=== PATIENT | male | born 1950 | race Caucasian/White ===

== ENCOUNTER → 2016-12-10 | Outpatient (CLI) | payer OTHER, BC ==
[2016-12-10 10:28] LABS: ASPARTATE AMINO TRANSFERASE 31 IU/L (21-57); BILIRUBIN,TOTAL 0.7 mg/dL (0.3-1.2); BLOOD UREA NITROGEN 23 mg/dL (7-22); CALCIUM 9.7 mg/dL (8.7-10.7); CHLORIDE 97 meq/L (98-112); CREATININE 1.1 mg/dL (0.70-1.50); EST GLOMERULAR FILTRATION > 60 (>60 ml/min/1.73m(2)); GLUCOSE 113 mg/dL (78-110); POTASSIUM 4.5 meq/L (3.8-5.2); SODIUM 139 meq/L (135-145); TOTAL PROTEIN 7.1 g/dL (6.1-8.0)
[2016-12-10 10:33] LABS: BASOPHILS % (AUTO) 1.1 % (0-1); EOSINOPHILS % (AUTO) 3.4 % (0-8); HEMATOCRIT 44.6 % (42.0-52.0); HEMOGLOBIN 14.6 g/dL (14.0-18.0); IMM GRAN % (AUTO) 0.1 % (0-5); IMM GRAN# (AUTO) 0.01 10*3/UL; LYMPHOCYTES # (AUTO) 1.05 10*3/uL; LYMPHOCYTES % (AUTO) 11.5 % (10-50); MEAN CORPUSCULAR HEMOGLOBIN 26.7 PG (27-31); MEAN CORPUSCULAR HGB CONC 32.7 g/dL (33-37); MEAN PLATELET VOLUME 10.8 FL (7.4-12.2); MONOCYTES # (AUTO) 0.88 10*3/UL (0.3-0.8); MONOCYTES % (AUTO) 9.6 % (5-15); NEUTROPHILS % (AUTO) 74.3 % (50-80); RDW COEFFICIENT OF VARIATION 16.9 % (11.5-14.5); RED BLOOD COUNT 5.47 10^6/uL (4.70-6.10); WHITE BLOOD COUNT 9.15 10^3/uL (4.8-10.8)
[2016-12-10 10:45] LABS: PLATELET MORPHOLOGY COMMENT NORMAL MORPHOLOGY (NORM)
[2016-12-10 10:50] LABS: HEMOGLOBIN A1C 5.76 % (4.2-6.0); MEAN BLOOD GLUCOSE (CALC) 105.808 mg/dL
[2016-12-10 11:12] LABS: LDL CHOLESTEROL,CALCULATED 67.4 mg/dL
== END ==
LOC: MOB LAB 08:03
PROVIDERS: ATTEND Family Medicine
DX: E11.9 Type 2 diabetes mellitus without complications (principal); E11.40 Type 2 diabetes mellitus with diabetic neuropathy, unspecified; Z79.4 Long term (current) use of insulin; I10 Essential (primary) hypertension; E78.5 Hyperlipidemia, unspecified; I25.10 Atherosclerotic heart disease of native coronary artery without angina pectoris; N40.0 Benign prostatic hyperplasia without lower urinary tract symptoms; Z12.5 Encounter for screening for malignant neoplasm of prostate
CPT/HCPCS: 36415; 80053; 80061; 83036; 84443; 85025; G0103

== ENCOUNTER → 2017-01-06 | Outpatient (CLI) | payer OTHER, BC ==
--- NOTE | 2017-01-06 11:52 | DI ---
,01/06/2017 11:14 AM: Clinical History: Bilateral knee pain of unspecified chronicity. Previous Exam: None at this facility. Findings: AP and lateral views of both knees are obtained, and demonstrate advanced degenerative osteoarthritis . Within the left knee there are multiple loose bodies. Peripheral vascular calcifications and postsu rgical changes are seen of the left knee. The right knee demonstrates complete loss of intervertebral disc height with eburnation and sclerosis of the medial femoral condyle and the medial tibial platea u. A few peripheral vascular calcifications are seen. There are some dystrophic calcifications within th e right suprapatellar bursa. Impression: 1. Advanced degenerative changes of the right knee with complete loss of medial joint space and scler osis. 2. Multiple loose bodies within the left knee joint with degenerative change and postsurgical change.
== END ==
LOC: ORTHO 11:27
PROVIDERS: ATTEND Orthopaedic Surgery
DX: M25.562 Pain in left knee (principal); M25.561 Pain in right knee; M17.0 Bilateral primary osteoarthritis of knee
CPT/HCPCS: 20610 ×2; 73560; 99203; G0463; J0702

== ENCOUNTER → 2017-01-10 | Outpatient (CLI) | payer OTHER, BC | LOC: MMPC 10:00 | PROVIDERS: ATTEND Orthopaedic Surgery | DX: M17.12 Unilateral primary osteoarthritis, left knee (principal) | CPT/HCPCS: 20610 ×2; G0463; J0702; J7325 ==

== ENCOUNTER → 2017-03-04 | Outpatient (CLI) | payer OTHER, BC ==
[2017-03-04 11:10] LABS: BLOOD UREA NITROGEN 23 mg/dL (7-22); CALCIUM 9.1 mg/dL (8.7-10.7); CHOL/HDL RATIO 2.54 RATIO (0-4.0); EST GLOMERULAR FILTRATION > 60 (>60 ml/min/1.73m(2)); HDL CHOLESTEROL 37 mg/dL (40-150); SERUM ALBUMIN 3.7 g/dL (3.5-4.8); SERUM CHOLESTEROL 94 mg/dL (120-200)
[2017-03-04 11:14] LABS: HEMOGLOBIN A1C 5.93 % (4.2-6.0)
[2017-03-04 12:10] LABS: FREE T4 (FREE THYROXINE) 1.06 ng/dL (0.93-1.71)
== END ==
LOC: MOB LAB 08:49
PROVIDERS: ATTEND Family Medicine
DX: E11.9 Type 2 diabetes mellitus without complications (principal); Z79.4 Long term (current) use of insulin; E78.5 Hyperlipidemia, unspecified; I10 Essential (primary) hypertension
CPT/HCPCS: 80053; 80061; 83036; 84439; 84443

== ENCOUNTER → 2017-05-02 | Outpatient (CLI) | payer OTHER, BC ==
[2017-05-02 17:08] LABS: BUN/CREATININE RATIO 21.42 (6-20); CALCIUM 9.1 mg/dL (8.7-10.7)
== END ==
LOC: MOB LAB 15:49
PROVIDERS: ATTEND Internal Medicine Cardiovascular Disease
DX: N18.1 Chronic kidney disease, stage 1 (principal)
CPT/HCPCS: 36415; 80048

== ENCOUNTER → 2017-06-10 | Outpatient (CLI) | payer OTHER, BC ==
[2017-06-10 10:36] LABS: BLOOD UREA NITROGEN 23 mg/dL (7-22); CALCIUM 9.5 mg/dL (8.7-10.7); CHOL/HDL RATIO 3.12 RATIO (0-4.0); EST GLOMERULAR FILTRATION > 60 (>60 ml/min/1.73m(2)); HDL CHOLESTEROL 33 mg/dL (40-150); SERUM ALBUMIN 3.9 g/dL (3.5-4.8); SERUM CHOLESTEROL 103 mg/dL (120-200)
[2017-06-10 10:38] LABS: HEMOGLOBIN A1C 5.99 % (4.2-6.0)
== END ==
LOC: MOB LAB 08:11
PROVIDERS: ATTEND Family Medicine
DX: E11.9 Type 2 diabetes mellitus without complications (principal); Z79.4 Long term (current) use of insulin; E78.5 Hyperlipidemia, unspecified; I10 Essential (primary) hypertension
CPT/HCPCS: 36415; 80053; 80061; 83036

== ENCOUNTER → 2017-06-11 | Outpatient (CLI) | payer OTHER, BC | LOC: MMPC 09:00 | PROVIDERS: ATTEND Family Medicine | DX: E11.9 Type 2 diabetes mellitus without complications (principal); J44.9 Chronic obstructive pulmonary disease, unspecified; M54.5 Low back pain; E78.5 Hyperlipidemia, unspecified; I25.10 Atherosclerotic heart disease of native coronary artery without angina pectoris; N40.0 Benign prostatic hyperplasia without lower urinary tract symptoms | CPT/HCPCS: 99214; G0463 ==